=== PATIENT | female | born 1975 | race Caucasian/White ===

== ENCOUNTER → 2020-09-19 | Emergency (ER) | payer OTHER ==
[~2020-09-19] MED LIST: KETOROLAC 60 MG/2 ML VIAL. IM ONE; KETOROLAC 60 MG/2 ML VIAL. ONE; methylPREDNISolone SOD SUCC PF 125 MG/2 ML VIAL. IM ONE; methylPREDNISolone SOD SUCC PF 125 MG/2 ML VIAL. ONE
== END | disposition left against medical advice (07) ==
LOC: ER 00:43
DX: R20.0 Anesthesia of skin (principal); Z53.21 Procedure and treatment not carried out due to patient leaving prior to being seen by health care provider